=== PATIENT | female | born 1980 | race Caucasian/White ===

== ENCOUNTER 2018-04-01 05:56 | Day surgery (SDC) | payer MEDICAID ==
[2018-03-29 15:23] LABS: HCG SERUM QL NEGATIVE
[2018-03-29 15:32] LABS: ALBUMIN 3.3 G/DL (3.4-5.0); ALBUMIN/GLOBULIN RATIO 0.9 (1.1-1.5); ALKALINE PHOSPHATASE 60 IU/L (46-116); BLOOD UREA NITROGEN 7 MG/DL (7-18); BUN/CREATININE RATIO 8.5 (6.6-38.0); CALCIUM 8.6 MG/DL (8.5-10.1); CHLORIDE 104 MMOL/L (99-107); CREATININE 0.82 MG/DL (0.40-0.90); PRE OP ALT 14 U/L (30-65); PRE OP ANION GAP 9 (8-16); PRE OP AST 15 U/L (10-37); PRE OP BILIRUB, TOTAL 0.7 MG/DL (0.0-1.0); PRE OP GLUCOSE 116 MG/DL (70-104); PRE OP POTASSIUM 3.5 MMOL/L (3.4-5.1); PRE OP SODIUM 139 MMOL/L (135-145); TOTAL CARBON DIOXIDE 25.9 MMOL/L (24-32); TOTAL PROTEIN 6.8 G/DL (6.4-8.2); eGFR 79 ML/MIN
[2018-03-29 15:47] LABS: MEAN CORPUSCULAR HEMOGLOBIN 26.6 PG (27.0-31.0); MEAN CORPUSCULAR VOLUME 78.2 FL (78-98); PRE OP HEMATOCRIT 36.1 % (35.0-45.0); PRE OP HEMOGLOBIN 12.3 g/dL (12.0-16.0); RED BLOOD COUNT 4.61 X10'6 (4.20-5.60)
[2018-03-29 15:48] LABS: BASOPHILS % (AUTO) 0.5 % (0-1); EOSINOPHILS # (AUTO) 0.1 X10'3 (0-0.9); EOSINOPHILS % (AUTO) 0.6 % (0-6); LYMPHOCYTES # (AUTO) 1.6 X10'3 (1.1-4.8); LYMPHOCYTES % (AUTO) 17.9 % (21-51); MEAN PLATELET VOLUME 10.3 FL (7.4-10.4); MONOCYTES # (AUTO) 0.4 X10'3 (0-0.9); MONOCYTES % (AUTO) 4.2 % (2-12); NEUTROPHILS # (AUTO) 6.7 X10'3 (1.8-7.7); NEUTROPHILS % (AUTO) 76.8 % (42-75); PRE OP PLATELET COUNT 231 X10'3 (140-440); RED CELL DISTRIBUTION WIDTH 14.6 % (11.5-14.5)
[2018-04-01] VITALS (7 sets, daily range): BP systolic 97–148; BP diastolic 47–64
[~2018-04-01] VITALS: Ht 163.8 cm; Wt 77.2 kg
[~2018-04-01 05:56] MED LIST: NO HOME MEDS; ceFAZolin 1GM/D5W- ADD-VANTAGE 50 ML IV ONE; famotidine 20mg tablet PO ONE; ringers solution, lacted 1,000 ML IV SCH
[2018-04-01] MEDS ORDERED: LIDOcaine 0.5% (5mg/ml) 50ml vial ONE (09:27)
[2018-04-01] MEDS ORDERED: BUPIVAcaine/PF 2.5mg/ml (0.25%) 10ml vial ONE (10:44)
[2018-04-01] MEDS ORDERED: midazolam 2 mg/2 ml injection ONE (11:01)
[2018-04-01] MEDS ORDERED: fentaNYL/PF 50MCG/1 ML 2ML syringe ONE ×2 (11:01→11:44)
[2018-04-01] MEDS ORDERED: sevoflurane 250ml liquid IH ONE (11:15)
[2018-04-01] MEDS ORDERED: propofol inj 20 ML IV ONE (11:57)
[2018-04-01] MEDS ORDERED: LIDOcaine 2% (20mg/ml) 5ml vial ONE (11:57)
[2018-04-01] MEDS ORDERED: ondansetron/PF 4mg/2ml inj ONE (11:57)
== END 2018-04-01 12:58 | disposition home or self-care (01) ==
LOC: PAS 05:56
PROVIDERS: ATTEND Orthopaedic Surgery Hand Surgery
DX: G56.03 Carpal tunnel syndrome, bilateral upper limbs (principal); F17.210 Nicotine dependence, cigarettes, uncomplicated; F41.8 Other specified anxiety disorders; Z72.89 Other problems related to lifestyle; Z86.14 Personal history of Methicillin resistant Staphylococcus aureus infection; Z79.891 Long term (current) use of opiate analgesic; Z88.5 Allergy status to narcotic agent; Z98.890 Other specified postprocedural states; Z79.899 Other long term (current) drug therapy; Z82.49 Family history of ischemic heart disease and other diseases of the circulatory system; Z80.9 Family history of malignant neoplasm, unspecified
CPT/HCPCS: 29848; 36415; 80053; 84703; 85025; A6222; A6449; J0690; J2001; J2250; J2405; J2704; J3010; J3490; A7000; J7120

== ENCOUNTER 2021-01-03 03:31 | Emergency (ER) | payer MEDICAID ==
[~2021-01-03] VITALS: Ht 162.6 cm; Wt 77.2 kg
[~2021-01-03 03:31] MED LIST changes: -ceFAZolin 1GM/D5W- ADD-VANTAGE 50 ML IV ONE; -famotidine 20mg tablet PO ONE; -ringers solution, lacted 1,000 ML IV SCH
[2021-01-03 03:36] VITALS: BP 108/69
--- NOTE | 2021-01-03 03:40 | NUR ---
heart tones: 145bpm via doppler
== END 2021-01-03 03:57 ==
LOC: ER 03:32
DX: Z00.8 Encounter for other general examination (principal); F15.90 Other stimulant use, unspecified, uncomplicated; F11.90 Opioid use, unspecified, uncomplicated; Z88.8 Allergy status to other drugs, medicaments and biological substances; Z98.890 Other specified postprocedural states
CPT/HCPCS: 99283

== ENCOUNTER 2021-12-22 18:44 | Emergency (ER) | payer MEDICAID ==
[~2021-12-22] VITALS: Ht 162.6 cm; Wt 86.7 kg
[2021-12-22 19:00] VITALS: BP 140/77
[2021-12-22] MEDS ORDERED: BUPIVAcaine 0.5% W/EPI /PF 10ml vial IJ STA (21:06)
[2021-12-22] MEDS ORDERED: ibuprofen tablet 400 MG TABLET PO ONE (21:30)
[2021-12-22] MEDS ORDERED: AMOX-580 PO ×3 (21:32→21:51)
[2021-12-22] MEDS ORDERED: IBUP-1985 PO (21:34)
== END 2021-12-22 22:03 | disposition home or self-care (01) ==
LOC: ER 18:45
DX: K04.7 Periapical abscess without sinus (principal); F17.210 Nicotine dependence, cigarettes, uncomplicated; F15.90 Other stimulant use, unspecified, uncomplicated; Z86.14 Personal history of Methicillin resistant Staphylococcus aureus infection; Z98.890 Other specified postprocedural states; Z88.8 Allergy status to other drugs, medicaments and biological substances; Z79.2 Long term (current) use of antibiotics
CPT/HCPCS: 10060; 99283

== ENCOUNTER 2022-02-03 21:50 | Emergency (ER) | payer MEDICAID ==
[~2022-02-03] VITALS: Ht 162.6 cm; Wt 75.0 kg
[~2022-02-03 21:50] MED LIST changes: +AMOX-580 PO; +IBUP-1985 PO
[2022-02-03 22:03] VITALS: BP 127/85
[2022-02-03] MEDS ORDERED: naproxen 500mg tablet PO ONE (23:00)
[2022-02-03] MEDS ORDERED: penicillin V potassium 500mg tablet PO ONE (23:00)
[2022-02-03] MEDS ORDERED: PENI250T2 PO (23:02)
[2022-02-03] MEDS ORDERED: NAPR-56 PO (23:02)
== END 2022-02-03 23:15 | disposition home or self-care (01) ==
LOC: ER 21:51
DX: K08.89 Other specified disorders of teeth and supporting structures (principal); Z86.14 Personal history of Methicillin resistant Staphylococcus aureus infection; Z88.5 Allergy status to narcotic agent; Z79.899 Other long term (current) drug therapy; Z79.2 Long term (current) use of antibiotics
CPT/HCPCS: 99283

== ENCOUNTER 2022-02-06 09:59 | Emergency (ER) | payer MEDICAID ==
[~2022-02-06] VITALS: Ht 162.6 cm; Wt 70.5 kg
[~2022-02-06 09:59] MED LIST changes: +NAPR-56 PO; +PENI250T2 PO
[2022-02-06 10:42] VITALS: BP 101/70
[2022-02-06] MEDS ORDERED: LIDOcaine/epinephrine/tetracaine TOPICAL sol 3 ML syringe TOP ONE (11:25)
== END 2022-02-06 12:32 | disposition home or self-care (01) ==
LOC: ER 10:00
DX: K04.7 Periapical abscess without sinus (principal); Z86.14 Personal history of Methicillin resistant Staphylococcus aureus infection; Z88.5 Allergy status to narcotic agent; Z79.1 Long term (current) use of non-steroidal anti-inflammatories (NSAID); Z79.2 Long term (current) use of antibiotics; Z98.890 Other specified postprocedural states
CPT/HCPCS: 41800; 99284; J3490; A6449